=== PATIENT | male | born 1950 | race Caucasian/White ===

== ENCOUNTER → 2017-07-25 | Day surgery (SDC) | payer MEDICARE, OTHER ==
[2017-07-23 10:28] LABS: BASOPHILS # (AUTO) 0.1 (0.0-0.1); BASOPHILS % 0.7 % (0.0-1.0); EOSINOPHILS # (AUTO) 0.1 (0.0-0.4); EOSINOPHILS % 1.9 % (0.0-6.0); HEMATOCRIT 40.1 % (38.2-49.6); HEMOGLOBIN 14.5 g/dL (14.0-18.0); LYMPHOCYTES # (AUTO) 3.3 (1.0-3.2); LYMPHOCYTES % 45.2 % (18.0-39.1); MEAN CORPUSCULAR HEMOGLOBIN 32.6 pg (28-32); MEAN CORPUSCULAR HGB CONC 36.2 g/dL (31-35); MEAN CORPUSCULAR VOLUME 90.1 fL (81-99); MONOCYTES # (AUTO) 1.1 (0.2-0.8); MONOCYTES % 14.6 % (4.4-11.3); NEUTROPHILS # (AUTO) 2.7 (2.1-6.9); PLATELET COUNT 301 x10e3/uL (140-360); RED BLOOD COUNT 4.45 x10e6/uL (4.3-5.7); RED CELL DISTRIBUTION WIDTH 12.1 % (11.7-14.4)
[~2017-07-25] MED LIST: ASPIRIN81 M2 PO; ELLIQUIS PO; FENTANYL CITRATE/PF 100MCG/2 ML INJ ONE; HYOSCYAMINE SULFATE 0.5 MG/ML AMP ONE; LATANOPROST2.5 ML OP; LISINOPRIL2.5 MG PO; METOPROLOL SUCC25 MG; MIDAZOLAM HCL 2 MG/2 ML VIAL ONE; PROPAFENONE HC325 MG PO; PROPOFOL IV EMULSION 10 MG/ML 50 ML VIAL ONE; VALACYCLOVIR500 MG PO; Z.0.MULTIVITAMINS1 E; Z.0.RAMIPRIL10 MG PO; Z.1.FISH OIL 1,2001 PO
--- OUTSIDE RECORDS SUMMARY | 2017-07-25 08:22 | XMS REPORT | Clinical Summary ---
Author Author [facility] Organization [facility] Address Unknown Phone Unavailable Care Team Providers Care Senior Maintenance Mechanic Name Role Phone Scotty Johnson MD PCP Allergies No Known Allergies Current Medications Prescription Sig. Disp. Refills Start End Date Status Date latanoprost (XALATAN) Administer 1 drop to both 09/01/19 Active 0.005 % ophthalmic eyes nightly. 17 solution valACYclovir (VALTREX) Take 1 g by mouth daily 10/10/19 Active 1000 MG tablet as needed for other. 17 euaiboey-niy-MH-K-lycopen Take 1 tablet by mouth Active e (ONE-A-DAY MEN'S 50 every morning. PLUS) 400-20-370 mcg tablet metoprolol succinate XL Take 25 mg by mouth 2 Active (TOPROL-XL) 25 mg 24 hr (two) times a day. tablet propafenone (RHTHYMOL) Take 300 mg by mouth as Active 150 MG tablet needed (a fib). lisinopril Take 5 mg by mouth daily. Active (PRINIVIL,ZESTRIL) 5 mg tablet ELIQUIS 5 mg tablet Take 5 mg by mouth 2 10/23/19 05/10/20 Discontin (two) times a day. 17 17 ued ramipril (ALTACE) 10 MG Take 10 mg by mouth every 10/03/19 11/05/19 Discontin capsule morning. 17 17 ued metoprolol tartrate Take 0.5 tablets (12.5 mg 30 tablet 0 11/05/19 12/05/19 (LOPRESSOR) 25 mg tablet total) by mouth 2 (two) 17 17 times a day for 30 days. metoprolol tartrate Take 25 mg by mouth 2 05/09/20 Discontin (LOPRESSOR) 25 mg tablet (two) times a day. 17 ued cephalexin (KEFLEX) 500 Take 1 capsule (500 mg 28 capsule 0 05/10/20 05/17/20 MG capsule total) by mouth 4 (four) 17 17 times a day for 7 days. mupirocin (BACTROBAN) 2 % Apply topically 3 (three) 22 g 1 05/10/20 05/24/20 ointment times a day for 14 days. 17 17 To incisions ondansetron ODT (ZOFRAN Take 1 tablet (4 mg 12 tablet 0 05/10/2012/20 ODT) 4 MG disintegrating total) by mouth every 8 17 18 tablet (eight) hours as needed for nausea or vomiting for up to 30 days. Active Problems Problem Noted Date Open wound of lip 05/09/2017 Overview: Added automatically from request for surgery [id number] Palpitations 11/03/2016 Encounters Date Type Specialty Care Team Description 07/12/2017 Office Visit Otolaryngology Cira Ireland MD Lymphedema (Primary Dx) 06/20/2017 Telephone Otolaryngology Millie Castañeda MA 06/10/2017 Office Visit Otolaryngology Cira Ireland MD Scar, hypertrophic (Primary Dx) 05/28/2017 Telephone Otolaryngology Millie Castañeda MA 05/20/2017 Office Visit Otolaryngology Cira Ireland MD Open wound of lip, unspecified open wound type, subsequent encounter (Primary Dx) 05/13/2017 Telephone Otolaryngology Millie Castañeda MA 05/10/2017 Hospital General Surgery Cira Ireland MD Encounter 05/10/2017 Anesthesia General Surgery Roopa Espino MD Event 05/10/2017 Procedure Pass General Surgery 05/10/2017 Surgery General Surgery Cira Ireland MD ADJACENT TISSUE TRANSFER, INVOLVING EYELIDS, NOSE, EARS, OR LIPS 05/09/2017 Prep for Otolaryngology Cira Ireland MD Open wound of lip, Surgery unspecified open wound type, initial encounter (Primary Dx) 04/22/2017 Office Visit Otolaryngology Cira Ireland MD Basal cell carcinoma, lip (Primary Dx) 11/03/2016 Emergency General Internal Medicine Jorge A Gonsalez, Palpitations (Primary - MD Dx); 11/04/2016 Anyi Greer MD Hypertensive urgency after 07/24/2016 Family History Medical History Relation Name Comments Diabetes Sister Hypertension Sister Relation Name Status Comments Sister Social History Tobacco Use Types Packs/Day Years Used Date Former Smoker 1 15 Quit: 05/09/1997 Smokeless Tobacco: Never Used Tobacco Cessation: Counseling Given: No Alcohol Use Drinks/Week oz/Week Comments Yes occasional Sex Assigned at Date Recorded Not on file Last Filed Vital Signs Vital Sign Reading Time Taken Blood Pressure 147/78 07/12/2017 9:46 AM [employer]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 Pulse 67 07/12/2017 9:46 AM WO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 Temperature 36.4 C (97.6 F) 05/10/2017 6:15 PM WO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 Respiratory Rate 14 05/10/2017 7:15 PM WO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 Oxygen Saturation 96% 05/10/2017 7:15 PM WO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 Inhaled Oxygen - - Concentration Weight 98.4 kg (217 lb) 06/10/2017 9:57 AM WO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 Height 177.8 cm (5' 10") 07/12/2017 9:46 AM WO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 Body Mass Index 31.14 06/10/2017 9:57 AM WO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 Plan of Treatment Date Type Specialty Care Team Description 01/09/2018 [place] [address] [facility] [address] [place] [address] [phone] Health Maintenance Due Date Last Done Comments COLONOSCOPY 2000 ZOSTER VACCINE 2010 PNEUMOCOCCAL 2015 POLYSACCHARIDE VACCINE AGE 65 AND OVER PNEUMOCOCCAL-13 2015 INFLUENZA VACCINE 01/01/2017 Procedures Procedure Name Priority Date/Time Associated Diagnosis Comments NH AN ELECTIVE Routine 05/10/2017 ENDOTRACHEAL AIRWAY 4:49 PM WO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 Procedure Note - Colt Cartwright - 05/10/2017 4:49 PM WO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 Airway Date/Time: 05/10/2017 4:31 PM Performed by: ROOPA ESPINO Authorized by: OROPA ESPINO Location: OR Urgency: Elective Difficult Airway: No Anesthesio logist: ROOPA ESPINO Resident/C RNA/AA: COLT CARTWRIGHT Performed by: resident/C RNA/AA Preoxygena juliane with 100% O2: Yes Mask Ventilatio n: Easy mask Final Airway Type: Endotrache al airway Final Endotrache al Airway: ETT Cuffed: Yes Technique Used: Direct laryngosco py Devices/Me thods Used in Placement: Intubatin g stylet Insertion Site: Oral Blade Type: Rice Laryngosco pe Blade/Vide olaryngosc ope Blade Size: 2 ETT Size (mm): 7.5 Cuff at minimum occlusion pressure: Yes Measured from: Teeth ETT to Teeth (cm): 21 Placement Verified by: CO2 detection and direct visualizat ion Laryngosco pic view: Grade I - full view of glottis Rapid Sequence Induction (RSI): No Modified RSI: No Number of Attempts at Approach: 1 ADJACENT TISSUE TRANSFER, 05/10/2017 Open wound of lip, INVOLVING EYELIDS, NOSE, 3:00 PM WO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 unspecified open wound EARS, OR LIPS type, initial encounter after 07/24/2016 Results * ECG Pre/Post Op (05/10/2017 11:30 AM) Component Value Ref Range Ventricular rate 64 Atrial rate 64 NH interval 196 QRSD interval 92 QT interval 416 QTC interval 429 P axis 1 60 QRS axis 1 44 T wave axis 41 EKG impression Normal sinus rhythm-Possible Anterior infarct , age undetermined-Abnormal ECG-In automated comparison with ECG of 03-NOV-2016 17:27,-Borderline criteria for Anterior infarct are now present- Specimen Performing Laboratory [facility] [address] [place] [address] * Estimated GFR (05/10/2017 10:45 AM) Only the most recent of 3 results within the time period is included. Component Value Ref Range GFR Non Af Amer >90 mL/min/1.73 m2 GFR Af Amer >90 mL/min/1.73 m2 Comment: Chronic kidney disease: <60 mL/min/1.73m2 Kidney failure: <15 mL/min/1.73m2 The estimated GFR is calculated from the IDMS-traceable Modification of Diet in Renal Disease Equation. The accuracy of the calculation is poor when the creatinine is normal. Calculated values >90 mL/min/1.73m2 are not reported. This equation has not been validated in children (<18 years), women, the elderly (>70 years), or ethnic groups other than Caucasians and Americans. Specimen Performing Laboratory Plasma specimen [facility] DEPARTMENT OF PATHOLOGY AND [facility] [address] [place] [address] * Partial thromboplastin time, activated (05/10/2017 10:45 AM) Only the most recent of 2 results within the time period is included. Component Value Ref Range PTT 27.1 23.0 - 36.0 sec Comment: PTT therapeutic range for unfractionated heparin is 61.0-112.0 seconds which corresponds to Anti-Xa 0.3-0.7 U/ml. Specimen Performing Laboratory Blood [facility] DEPARTMENT OF PATHOLOGY AND [facility] [address] [place] [address] * Prothrombin time with INR (05/10/2017 10:45 AM) Only the most recent of 2 results within the time period is included. Component Value Ref Range Prothrombin time 13.6 12.0 - 15.0 sec INR 1.0 Comment: The International Normalized Ratio (INR) is a therapeutic monitoring tool for patients who are stable on oral anticoagulant therapy. An INR of 2.0-3.0 is suggested for deep vein thrombosis/pulmonary embolism. Specimen Performing Laboratory Blood [facility] OF PATHOLOGY AND [facility] [address] [place] [address] * CBC with platelet and differential (05/10/2017 10:45 AM) Only the most recent of 3 results within the time period is included. Component Value Ref Range WBC 6.98 4.50 - 11.00 k/uL RBC 4.37 (L) 4.40 - 6.00 m/uL HGB 14.2 14.0 - 18.0 g/dL HCT 40.1 (L) 41.0 - 51.0 % MCV 91.8 82.0 - 100.0 fL MCH 32.5 27.0 - 34.0 pg MCHC 35.4 31.0 - 37.0 g/dL RDW - SD 41.2 37.0 - 55.0 fL MPV 8.7 (L) 8.8 - 13.2 fL Platelet count 255 150 - 400 k/uL Nucleated RBC 0.00 /100 WBC Neutrophils 38.3 (L) 39.0 - 69.0 % Lymphocytes 45.1 (H) 25.0 - 45.0 % Monocytes 13.8 (H) 0.0 - 10.0 % Eosinophils 1.6 0.0 - 5.0 % Basophils 0.9 0.0 - 1.0 % Immature granulocytes 0.3Comment: "Immature granulocytes" 0.0 - 1.0 % (promyelocytes, myelocytes, metamyelocytes) Specimen Performing Laboratory Blood [facility] OF PATHOLOGY AND [facility] [address] [place] [address] * Basic metabolic panel (05/10/2017 10:45 AM) Only the most recent of 2 results within the time period is included. Component Value Ref Range Sodium 140 135 - 148 mEq/L Potassium 4.2 3.5 - 5.0 mEq/L Chloride 102 98 - 112 mEq/L CO2 27 24 - 31 mEq/L Anion gap 11 7 - 15 mEq/L Comment: Starting from September , anion gap calculation no longer incorporates potassium. Please note the change. BUN 12 8 - 23 mg/dL Creatinine 0.8 0.7 - 1.2 mg/dL Glucose 102 (H) 65 - 99 mg/dL Calcium 8.9 8.8 - 10.2 mg/dL Specimen Performing Laboratory Plasma specimen [facility] OF PATHOLOGY AND [facility] [id number] [place] [address] [place] [address] * XR Chest 2 Vw (05/10/2017 10:20 AM) Specimen Performing Laboratory [facility] [address] [place] [address] Narrative EXAMINATION:XR CHEST 2 VW CLINICAL HISTORY:Cough COMPARISON:November 03, 2016 FINDINGS: Heart size appears normal. The mediastinum is unremarkable. The lungs appear clear. IMPRESSION: There are no acute findings visualized. [id number] Procedure Note Interface, Radiology Results Incoming - 05/10/2017 10:44 AM WO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 EXAMINATION: XR CHEST 2 VW CLINICAL HISTORY: Cough COMPARISON: November 03, 2016 FINDINGS: Heart size appears normal. The mediastinum is unremarkable. The lungs appear clear. IMPRESSION: There are no acute findings visualized. [id number] * Troponin (11/04/2016 2:04 AM) Only the most recent of 3 results within the time period is included. Component Value Ref Range Troponin <0.300 0.000 - 0.300 ng/mL Comment: 0.30 - 1.49 ng/ml May indicate increased risk of acute coronary syndrome. >=1.5 ng/ml Consistent with acute myocardial infarction. The diagnostic value of a single normal or non-diagnostic result is questionable. Serial samples at 2-6 hour intervals are required to rule out acute myocardial injury. Specimen Performing Laboratory Plasma specimen [facility] DEPARTMENT OF PATHOLOGY AND GENOMIC MEDICINE [id number] [place] [address] [place] [address] * XR Chest 1 Vw Portable (11/03/2016 6:33 PM) Specimen Performing Laboratory [facility] [address] [place] [address] Narrative Examination: XR CHEST 1 VW PORTABLE Clinical history: Chest Pain Comparison: February 16, 2016 Impression: 1. The heart and pulmonary vasculature are within normal limits. 2. No infiltrate or effusion is demonstrated. 3. There is no acute osseous pathology. CONCLUSION: NO RADIOGRAPHIC EVIDENCE OF ACUTE CARDIOPULMONARY ABNORMALITY. [id number] Procedure Note Hm Interface, Radiology Results Incoming - 11/03/2016 6:43 PM CDT Examination: XR CHEST 1 VW PORTABLE Clinical history: Chest Pain Comparison: February 16, 2016 Impression: 1. The heart and pulmonary vasculature are within normal limits. 2. No infiltrate or effusion is demonstrated. 3. There is no acute osseous pathology. CONCLUSION: NO RADIOGRAPHIC EVIDENCE OF ACUTE CARDIOPULMONARY ABNORMALITY. [id number] * ECG ED Preliminary Interpretation - NOT AN ORDER (11/03/2016 6:18 PM) Narrative Jorge A Gonsalez MD 11/03/20166:18 PM ECG ED Preliminary Interpretation - Not an Order Performed by: JORGE A GONSALEZ Authorized by: JORGE A GONSALEZ ECG reviewed by ED Physician in the absence of a auto parts manager: yes Previous ECG: Previous ECG:Unavailable Interpretation: Interpretation: normal Rate: ECG rate assessment: normal Rhythm: Rhythm: sinus rhythm Ectopy: Ectopy: none QRS: QRS axis:Normal QRS intervals:Normal Conduction: Conduction: normal ST segments: ST segments:Normal T waves: T waves: normal * Magnesium level (11/03/2016 5:30 PM) Component Value Ref Range Magnesium 2.1 1.6 - 2.4 mg/dL Specimen Performing Laboratory Plasma specimen [facility] DEPARTMENT OF PATHOLOGY AND GENOMIC MEDICINE [address] [place] [address] * Creatine kinase, total (CPK) (11/03/2016 5:30 PM) Component Value Ref Range Creatine kinase 113 39 - 308 U/L Specimen Performing Laboratory Plasma specimen [facility] DEPARTMENT OF PATHOLOGY AND GENOMIC MEDICINE [id number] [place] [address] [place] [address] * Comprehensive metabolic panel (11/03/2016 5:30 PM) Component Value Ref Range Sodium 134 (L) 135 - 148 mEq/L Potassium 3.8 3.5 - 5.0 mEq/L Chloride 98 98 - 112 mEq/L CO2 22 (L) 24 - 31 mEq/L Anion gap 14 7 - 15 mEq/L Comment: Starting from September , anion gap calculation no longer incorporates potassium. Please note the change. BUN 13 8 - 23 mg/dL Creatinine 0.7 0.7 - 1.2 mg/dL Glucose 143 (H) 65 - 99 mg/dL Calcium 8.9 8.8 - 10.2 mg/dL Protein 7.3 6.3 - 8.3 g/dL Comment: [place] 4.6-7.0 g/dL 1 week 4.4-7.6 g/dL 7 months-1year 5.1-7.3 g/dL 1-2 years 5.6-7.5 g/dL >3 years 6.0-8.0 g/dL 18-150 6.3-8.3 g/dL Albumin 4.1 3.5 - 5.0 g/dL A/G ratio 1.3 0.7 - 3.8 Alkaline phosphatase 57 40 - 129 U/L AST 18 10 - 50 U/L ALT 16 5 - 50 U/L Total bilirubin 0.4 0.0 - 1.2 mg/dL Specimen Performing Laboratory Plasma specimen [facility] DEPARTMENT OF PATHOLOGY AND GENOMIC MEDICINE [address] [place] [place] [address] * ECG 12 lead (11/03/2016 5:27 PM) Component Value Ref Range Ventricular rate 80 Atrial rate 80 NH interval 196 QRSD interval 82 QT interval 364 QTC interval 419 P axis 1 53 QRS axis 1 30 T wave axis 55 EKG impression Normal sinus rhythm-Normal ECG-In automated comparison with ECG of 03-NOV-2016 17:26,-No significant change was found- Specimen Performing Laboratory [facility] [address] [place] [address] after 07/24/2016 Insurance Payer Benefit Subscriber ID Type Phone Address Plan / Group MEDICARE MEDICARE xxxxxxxxxx Medicare [place] A [place] B COMMERCIAL MISC MISC xxxxxxxxxx Commercial COMMERCIAL
--- NOTE | 2017-07-25 12:39 | Operative Report ---
DATE OF PROCEDURE: July 25, 2017 REFERRING PHYSICIAN: Dr. Calvin Acevedo PROCEDURES PERFORMED 1. Esophagogastroduodenoscopy. 2. Colonoscopy with polypectomy. INDICATIONS FOR EGD: Heartburn, indigestion. INDICATIONS FOR COLONOSCOPY: Colorectal cancer screening. Personal history of colon polyps. MEDICATION: Patient was done under MAC. Please see anesthesiologist's note. PROCEDURE: With the patient in the left lateral decubitus position, the flexible fiberoptic Olympus gastroscope was introduced into the esophagus under direct visualization without any difficulty. There was some patchy erythema noted in the distal esophagus. The GE junction appeared somewhat nodular, and that was biopsied. The scope was then advanced with ease into the stomach, traversing a small sliding hiatal hernia. Mucosa overlying the antrum and the body revealed some patchy, intense erythema and moderate edema, and biopsies were obtained and sent to stain for H. pylori. Pylorus appeared to be of normal contour and shape. It was intubated with ease, and the scope was advanced all the way to the 2nd portion of the duodenum. The scope was then withdrawn slowly. Mucosa overlying the proximal 2nd portion and the duodenal bulb appeared to be within normal limits. The scope was then withdrawn back into the stomach and retroflexed. Mucosa overlying the fundus and the cardia appeared to be within normal limits. The scope was then straightened out. The scope was subsequently withdrawn. Patient tolerated the procedure well. IMPRESSION 1. Distal esophagitis. 2. Gastroesophageal junction somewhat nodular, biopsied. 3. Small sliding hiatal hernia. 4. Gastritis, biopsied. Biopsies sent to stain for H. pylori. PLAN: Follow up histology. Initiate Protonix 40 mg 1 p.o. q.a.m. a.c. The patient was then turned around. After adequate lubrication of the anal canal, a flexible fiberoptic Olympus colonoscope was inserted into the rectum with ease and advanced all the way to the cecum. It was then withdrawn slowly. Mucosa overlying the cecum, ascending colon, and transverse colon appeared to be within normal limits. Two polyps were hot biopsied from the descending colon. Diverticular disease was noted to involve the descending and the sigmoid. The rectum appeared to be within normal limits. The scope was then retroflexed into the distal rectum, and moderate-size internal hemorrhoids were noted, none of which was actively bleeding. The scope was then straightened out. It was subsequently withdrawn. Patient tolerated the procedure well. IMPRESSION 1. Descending colon polyps, hot biopsied times 2. 2. Diverticulosis. 3. Internal hemorrhoids, none actively bleeding. PLAN: Follow up histology. Initiate high-fiber, low-fat diet. Initiate high-fiber supplement. Patient will need a followup colonoscopy in 3 years. Job#: [id number] cc:CALVIN ACEVEDO MD
== END | disposition home or self-care (01) ==
LOC: OR 08:19
PROVIDERS: ATTEND Internal Medicine Gastroenterology
DX: Z12.11 Encounter for screening for malignant neoplasm of colon (principal); D12.4 Benign neoplasm of descending colon; K29.50 Unspecified chronic gastritis without bleeding; K21.0 Gastro-esophageal reflux disease with esophagitis; A04.8 Other specified bacterial intestinal infections; K44.9 Diaphragmatic hernia without obstruction or gangrene; K57.30 Diverticulosis of large intestine without perforation or abscess without bleeding; K64.8 Other hemorrhoids; I10 Essential (primary) hypertension; H40.9 Unspecified glaucoma; I48.91 Unspecified atrial fibrillation; Z01.812 Encounter for preprocedural laboratory examination; Z79.02 Long term (current) use of antithrombotics/antiplatelets; Z68.30 Body mass index [BMI] 30.0-30.9, adult; Z85.828 Personal history of other malignant neoplasm of skin
CPT/HCPCS: 36415; 43239; 45384; 85025; 88305; 88312; J1980; J2250

== ENCOUNTER → 2017-08-05 | Outpatient (CLI) | payer MEDICARE, OTHER ==
[~2017-08-05] MED LIST changes: -FENTANYL CITRATE/PF 100MCG/2 ML INJ ONE; -HYOSCYAMINE SULFATE 0.5 MG/ML AMP ONE; -MIDAZOLAM HCL 2 MG/2 ML VIAL ONE; -PROPOFOL IV EMULSION 10 MG/ML 50 ML VIAL ONE
--- NOTE | 2017-08-05 09:30 | Diagnostic Imaging Report ---
PROCEDURE:LIVER ULTRASOUND COMPARISON:Abdominal ultrasound 03/16/2015. INDICATIONS:Hepatic Steatosis FINDINGS: Liver: 15.7 cm. Increased hepatic parenchymal echogenicity. No focal mass. Simple cyst adjacent to the gallbladder, unchanged since the previous examination. Main portal vein: 1.3 cm. Hepatopedal flow. Gallbladder: No echogenic calculi, gallbladder thickening, or pericholecystic fluid. Common Bile Duct: 4.0 mm. No echogenic filling defect. Sonographic Meyers's sign: Negative. Right kidney: 10.9 cm. No solid or cystic mass, echogenic calculi, or hydronephrosis. Normal parenchymal echogenicity. The pancreas, inferior vena cava, and aorta were insufficiently visualized for comment secondary to overlying bowel gas. Ascites: None. CONCLUSION: No acute sonographic abnormality. Hepatic steatosis. Dictated by: Shailesh Cruz M.D. on 08/05/2017 at 9:29 Electronically approved by: Shailesh Cruz M.D. on 08/05/2017 at 9:29
== END ==
LOC: US 07:11
PROVIDERS: ATTEND Internal Medicine Gastroenterology
DX: K76.0 Fatty (change of) liver, not elsewhere classified (principal)
CPT/HCPCS: 76705

== ENCOUNTER → 2018-08-18 | Outpatient (CLI) | payer MEDICARE, OTHER ==
--- NOTE | 2018-08-18 13:46 | Diagnostic Imaging Report ---
EXAM: US ABDOMEN COMPLETE DATE: 08/18/2018 7:34 AM INDICATION: Nonalcoholic fatty liver disease COMPARISON: Hepatic ultrasound, 08/05/2017 FINDINGS: Grayscale and color flow Doppler ultrasound of the abdomen was performed. Liver: 15.3 cm span. Hyperechoic parenchyma. Smooth borders. No intrahepatic mass or bile duct dilatation. Small cyst previously seen adjacent to the gallbladder is not identified on the current exam. Main portal vein 0.9 cm, nondilated, normal hepatopetal flow. Spleen: 10.3 cm span, no splenomegaly. Biliary: No cholelithiasis or gallbladder wall thickening. Sonographic Meyers sign negative. Common bile duct 0.4 cm, normal. Pancreas: Visualized portions show no mass or duct dilatation. Right kidney: 10.8 x 5.5 x 5.0 cm. Normal cortical echogenicity. No hydronephrosis or contour deforming mass. Left kidney: 11.4 x 5.7 x 4.1 cm. Normal cortical echogenicity. No hydronephrosis or contour deforming mass. Vessels: Aorta and IVC are partially obscured by overlying bowel. Visualized portions unremarkable. Ascites: None IMPRESSION: 1. No sonographic evidence for acute abdominal pathology. 2. Hyperechoic hepatic parenchyma, compatible with steatosis. No hepatosplenomegaly. 3. No cholelithiasis or dilatation of the biliary tree. Signed by: Dr. Familia Webber M.D. on 08/18/2018 1:43 PM
== END ==
LOC: US 07:29
PROVIDERS: ATTEND Internal Medicine Gastroenterology
DX: K76.0 Fatty (change of) liver, not elsewhere classified (principal)
CPT/HCPCS: 76700

== ENCOUNTER → 2020-08-03 | Day surgery (SDC) | payer MEDICARE, OTHER ==
[2020-07-29 09:27] LABS: BASOPHILS % 0.6 % (0.0-1.0); EOSINOPHILS # (AUTO) 0.1 (0.0-0.4); EOSINOPHILS % 1.3 % (0.0-6.0); HEMATOCRIT 39.2 % (38.2-49.6); HEMOGLOBIN 13.5 g/dL (14.0-18.0); LYMPHOCYTES # (AUTO) 2.8 (1.0-3.2); LYMPHOCYTES % 44.8 % (18.0-39.1); MEAN CORPUSCULAR HEMOGLOBIN 31.3 pg (28-32); MEAN CORPUSCULAR HGB CONC 34.4 g/dL (31-35); MEAN CORPUSCULAR VOLUME 90.7 fL (81-99); MONOCYTES # (AUTO) 1.1 (0.2-0.8); MONOCYTES % 17.2 % (4.4-11.3); NEUTROPHILS # (AUTO) 2.3 (2.1-6.9); NEUTROPHILS % 35.8 % (38.7-80.0); PLATELET COUNT 292 x10e3/uL (140-360); RED BLOOD COUNT 4.32 x10e6/uL (4.3-5.7)
[~2020-08-03] MED LIST changes: +ELIQUIS5 MG PO; +FENTANYL CITRATE/PF 100MCG/2 ML INJ ONE; +HYDROCHLOROTH12.5 MG PO; +HYOSCYAMINE SULFATE 0.5 MG/ML INJ ONE; +LIDOCAINE HCL 2% LOCAL INJ 5 ML SDV VIAL INJ ONE; +LISINOPRIL10 MG PO; -METOPROLOL SUCC25 MG; +METOPROLOL SUCC25 MG PO; +MIDAZOLAM HCL 2 MG/2 ML VIAL ONE; +PROPOFOL IV EMULSION 10 MG/ML 20 ML VIAL ONE; +PROTONIX20 MG PO
[2020-08-03 11:14] VITALS: BP 108/52
[2020-08-03 12:20] LABS: ALANINE AMINOTRANSFERASE 17 IU/L (0-55); ALBUMIN 3.8 g/dL (3.5-5.0); ALBUMIN/GLOBULIN RATIO 1.1 (0.8-2.0); ALKALINE PHOSPHATASE 41 IU/L (40-150); BLOOD UREA NITROGEN 14 mg/dL (7-26); BUN/CREATININE RATIO 15 (6-25); CALCIUM 8.8 mg/dL (8.4-10.2); CARBON DIOXIDE 26 mmol/L (22-29); CHLORIDE 105 mmol/L (98-107); CREATININE, SERUM 0.91 mg/dL (0.72-1.25); EST GLOMERULAR FILTRATION RATE > 60 ML/MIN (60-); GLUCOSE 148 mg/dL (74-118); SODIUM 139 mmol/L (136-145)
== END | disposition home or self-care (01) ==
LOC: OR 07:27
PROVIDERS: ATTEND Internal Medicine Gastroenterology
DX: K22.70 Barrett's esophagus without dysplasia (principal); K63.5 Polyp of colon; K20.90 Esophagitis, unspecified without bleeding; K29.60 Other gastritis without bleeding; I85.00 Esophageal varices without bleeding; K57.30 Diverticulosis of large intestine without perforation or abscess without bleeding; K64.8 Other hemorrhoids; I10 Essential (primary) hypertension; I48.91 Unspecified atrial fibrillation; Z01.810 Encounter for preprocedural cardiovascular examination; Z01.812 Encounter for preprocedural laboratory examination; Z20.822 Contact with and (suspected) exposure to COVID-19; Z79.02 Long term (current) use of antithrombotics/antiplatelets; Z68.30 Body mass index [BMI] 30.0-30.9, adult
CPT/HCPCS: 36415 ×2; 43239; 45384; 76705; 80053; 85025; 88305; 88312; 93005; J1980; J2001; J2250; J2704; J3010; U0002; 45378

== ENCOUNTER → 2024-08-17 | Day surgery (SDC) | payer MEDICARE, OTHER ==
[2024-08-14 14:40] LABS: BASOPHILS % 0.4 % (0.0-1.0); EOSINOPHILS # (AUTO) 0.1 (0.0-0.4); EOSINOPHILS % 0.9 % (0.0-6.0); HEMATOCRIT 30.3 % (38.2-49.6); HEMOGLOBIN 10.3 g/dL (14.0-18.0); LYMPHOCYTES # (AUTO) 1.8 (1.0-3.2); LYMPHOCYTES % 16.6 % (18.0-39.1); MEAN CORPUSCULAR HEMOGLOBIN 31.8 pg (28-32); MEAN CORPUSCULAR VOLUME 93.5 fL (81-99); MONOCYTES # (AUTO) 2.2 (0.2-0.8); MONOCYTES % 20.4 % (4.4-11.3); NEUTROPHILS # (AUTO) 6.4 (2.1-6.9); NEUTROPHILS % 60.8 % (38.7-80.0); PLATELET COUNT 327 x10e3/uL (140-360); RED BLOOD COUNT 3.24 x10e6/uL (4.3-5.7); RED CELL DISTRIBUTION WIDTH 20.9 % (11.7-14.4); WHITE BLOOD COUNT 10.56 x10e3/uL (4.8-10.8)
[2024-08-14 15:09] LABS: ALBUMIN 3.4 g/dL (3.5-5.0); ALBUMIN/GLOBULIN RATIO 0.9 (0.8-2.0); ANION GAP 14.2 mmol/L (8-16); BILIRUBIN,TOTAL 0.5 mg/dL (0.2-1.2); CALCIUM 9.2 mg/dL (8.4-10.2); CREATININE, SERUM 0.72 mg/dL (0.72-1.25); POTASSIUM 4.2 mmol/L (3.5-5.1); TOTAL PROTEIN 7.4 g/dL (6.5-8.1)
[~2024-08-17] MED LIST changes: +DEXAMETHASONE4 MG PO; +ENTRESTO 24 MG1 EACH PO; +FLECAINIDE ACE100 MG PO; +FOLIC ACID0.4 MG PO; +FUROSEMIDE40 MG PO; +GABAPENTIN300 MG PO; +GLYCOPYRROLATE INJ 0.2 MG/ML VIAL ONE; -HYOSCYAMINE SULFATE 0.5 MG/ML INJ ONE; +MULTI-VITAMIN1 EACH PO; +NEOSTIGMINE 1 MG/ML 10ML VIAL ONE; +ONDANSETRON HCL INJ 2MG/ML 2ML 2 MG/ML VIAL ONE; +PRESERVISION A1 EAC2; +SODIUM CHLORI1000 MG PO; +TEMAZEPAM15 MG PO
[2024-08-17] MEDS: LACTATED RINGER'S 1,000 ML ONE (08:31)
[2024-08-17 11:45] VITALS: BP 138/64; PULSE 57; RESP 14; O2SAT 98
== END | disposition home or self-care (01) ==
LOC: OR 07:23
PROVIDERS: ATTEND Surgery
DX: K43.6 Other and unspecified ventral hernia with obstruction, without gangrene (principal); C34.90 Malignant neoplasm of unspecified part of unspecified bronchus or lung; C79.9 Secondary malignant neoplasm of unspecified site; I48.91 Unspecified atrial fibrillation; I10 Essential (primary) hypertension; M06.9 Rheumatoid arthritis, unspecified; M19.90 Unspecified osteoarthritis, unspecified site; K21.9 Gastro-esophageal reflux disease without esophagitis; Z01.810 Encounter for preprocedural cardiovascular examination; Z01.812 Encounter for preprocedural laboratory examination; Z01.818 Encounter for other preprocedural examination; Z79.60 Long term (current) use of unspecified immunomodulators and immunosuppressants; Z79.02 Long term (current) use of antithrombotics/antiplatelets; Z79.899 Other long term (current) drug therapy; Z87.891 Personal history of nicotine dependence
CPT/HCPCS: 36415; 49594; 71046; 80053; 85025; 88302; 93005; C1781; J2003; J2405; J2704; J2710; J3010; J7121; J2250